=== PATIENT | female | born 1960 | race Caucasian/White ===

== ENCOUNTER → 2022-08-12 | Day surgery (SDC) | payer OTHER ==
[~2022-08-12] MED LIST: BENZONATATE200 MG PO; BIOTIN PLUS 5,1 EACH PO; CETIRIZINE HCL10 M1 PO; DOXYCYCLINE HY100 MG PO; ECHINACEA80 MG PO; GARLIC1000 MG PO; L-LYSINE500 M2 PO; LEXAPRO10 MG PO; LIDOCAINE HCL 2% LOCAL INJ 5 ML SDV VIAL INJ ONE; PROPOFOL IV EMULSION 10 MG/ML 20 ML VIAL ONE; TURMERIC CURCU500 MG PO; ZINC PO; [UNRECOGNIZED DRUG - OTHER] PO
[2022-08-12 12:25] VITALS: BP 111/70
== END | disposition home or self-care (01) ==
LOC: OR 12:30
PROVIDERS: ATTEND Internal Medicine Gastroenterology
DX: Z12.11 Encounter for screening for malignant neoplasm of colon (principal); D12.2 Benign neoplasm of ascending colon; D12.4 Benign neoplasm of descending colon; K64.8 Other hemorrhoids; F41.9 Anxiety disorder, unspecified; Z01.810 Encounter for preprocedural cardiovascular examination; Z68.36 Body mass index [BMI] 36.0-36.9, adult; Z80.0 Family history of malignant neoplasm of digestive organs
CPT/HCPCS: 45384; 93005; J2001; J2704; 45378